=== PATIENT | female | born 1960 ===

== ENCOUNTER 2018-06-05 19:29 | Emergency (ER) | payer OTHER ==
[2018-06-05] MEDS ORDERED: Sodium Chloride 0.9% 1,000 ML IV STA ×2 (20:50→20:51)
--- NOTE | 2018-06-05 21:07 | ED PDOC ---
HPI: General Adult Time Seen by Provider: 06/05/18 20:41 Chief Complaint (Nursing): Weakness/Neurological Deficit Chief Complaint (Provider): weakness History Per: Patient, Family (Goddaughter) History/Exam Limitations: no limitations Onset/Duration Of Symptoms: Days (3 weeks) Current Symptoms Are (Timing): Still Present Additional Complaint(s): 57 y/o female history of hypertension, pre-diabetes here with Goddaughter for evaluation of generalized weakness x 3 weeks. Associated increase urine frequency, mostly during the night. Patient states in the last two days symptoms worsened, with associated dry mouth, prompting ED visit. Denies fever, headache, dizziness, nausea/vomiting, vision changes, chest pain, shortness of breath, palpitations, abdominal pain, changes in bowel movements, dysuria, hematuria. Past Medical History Reviewed: Historical Data, Nursing Documentation, Vital Signs Vital Signs: Last Vital Signs Temp 98 F 06/05/18 19:55 Pulse 74 06/05/18 19:55 Resp 16 06/05/18 19:55 BP 145/83 06/05/18 19:55 Pulse Ox 97 06/05/18 19:55 - Medical History PMH: Diabetes ("pre"; on Metformin (dose unknown)), HTN, Hyperlipidemia Denies: Chronic Kidney Disease - Surgical History Surgical History: No Surg Hx - Family History Family History: States: No Known Family Hx - Living Arrangements Living Arrangements: With Family - Social History Current smoker - smoking cessation education provided: No Alcohol: Social Drugs: Denies - Allergies Allergies/Adverse Reactions: Allergies Allergy/AdvReac Type Severity Reaction Status Date / Time No Known Allergies Allergy Verified 06/05/18 19:55 Review of Systems ROS Statement: Except As Marked, All Systems Reviewed And Found Negative Constitutional: Positive for: Weakness Genitourinary Female: Positive for: Frequency Physical Exam - Reviewed Nursing Documentation Reviewed: Yes Vital Signs Reviewed: Yes - Physical Exam Appears: Positive for: Well, Non-toxic, No Acute Distress Head Exam: Positive for: ATRAUMATIC, NORMAL INSPECTION, NORMOCEPHALIC Skin: Positive for: Normal Color Eye Exam: Positive for: Normal appearance ENT: Positive for: Normal ENT Inspection Cardiovascular/Chest: Positive for: Regular Rate, Rhythm Respiratory: Positive for: Normal Breath Sounds Gastrointestinal/Abdominal: Positive for: Normal Exam Back: Positive for: Normal Inspection Extremity: Positive for: Normal ROM Neurologic/Psych: Positive for: Alert, Oriented (x3) - Laboratory Results Result Diagrams: 06/05/18 22:01 06/05/18 22:01 - ECG ECG: Positive for: Viewed By Me (reviewed by ED attenidng) ECG Rhythm: Positive for: Sinus Rhythm O2 Sat by Pulse Oximetry: 97 - Progress ED Course And Treament: -accucheck >500 -cbc -cmp -ABG -ekg -IV NS bolus -IV insulin Patient states she is feeling better on re-eval. Patient educated on findings, discharged with instructions to follow up with PMD within 2-3 days for re-evaluation Continue current medications Diet/lifestyle modification Return precautions given Disposition - Clinical Impression Clinical Impression: Hyperglycemia due to type 2 diabetes mellitus - Patient ED Disposition Is Patient to be Admitted: No Counseled Patient/Family Regarding: Studies Performed, Diagnosis, Need For Followup - Disposition Disposition: Routine/Home Disposition Time: 02:43 Condition: IMPROVED Instructions: Hyperglycemia, Adult, Diabetes and Diet Forms: [employer] (Turkish) Print Language: MAORI
[2018-06-05 22:15] LABS: BASO # 0.1 K/uL (0.0-0.2); EOS # 0.1 K/uL (0.0-0.7); EOS % 0.9 % (0.0-4.0); HEMOGLOBIN 13.7 g/dL (12.0-16.0); LYMPH # 2.1 K/uL (1.0-4.3); LYMPH % 38.5 % (20.0-40.0); MEAN CELL VOLUME 88.7 fl (81.0-99.0); MEAN CORPUSCULAR HEMOGLOBIN 29.1 pg (27.0-31.0); MEAN CORPUSCULAR HGB CONC 32.8 g/dL (33.0-37.0); MEAN PLATELET VOLUME 10.7 fl (7.2-11.7); MONO # 0.5 K/uL (0.0-0.8); MONO % 8.4 % (0.0-10.0); NEUT # 2.8 K/uL (1.8-7.0); NEUT % 50.2 % (50.0-75.0); NRBC % 0.1 % (0.0-0.0); RBC 4.72 Mil/uL (3.80-5.20); RED CELL DISTRIBUTION WIDTH 14.2 % (11.5-14.5); WHITE BLOOD COUNT 5.5 K/uL (4.8-10.8)
[2018-06-05 22:23] LABS: ABG ALLEN TEST YES; ARTERIAL BLOOD GAS HCO3 25.5 mmol/L (21-28); ARTERIAL BLOOD GAS O2 SAT 97.2 % (95-98); ARTERIAL BLOOD GAS PCO2 43 mm/Hg (35-45); ARTERIAL BLOOD GAS PH 7.39 (7.35-7.45); ARTERIAL BLOOD GAS PO2 72 mm/Hg (80-100); ARTERIAL BLOOD GAS TCO2 27.3 mmol/L (22-28)
[2018-06-05 22:24] LABS: SQUAMOUS EPITHIAL 2 /hpf (0-5); URINE BACTERIA RARE (<OCC); URINE BILIRUBIN NEGATIVE (NEGATIVE); URINE CLARITY CLEAR (Clear); URINE COLOR STRAW (YELLOW); URINE GLUCOSE (UA) >=500 mg/dL (NEGATIVE); URINE LEUKOCYTE ESTERASE TRACE Leu/uL (Negative); URINE PROTEIN NEGATIVE (NEGATIVE); URINE UROBILINOGEN 0.2-1.0 mg/dL (0.2-1.0)
[2018-06-05 22:25] LABS: URINE BLOOD SMALL (NEGATIVE)
[2018-06-05 22:58] LABS: ALB/GLOB RATIO 1.4 (1.0-2.1); ALBUMIN 4.6 g/dL (3.5-5.0); ALT/SGPT 67 U/L (9-52); AST/SGOT 35 U/L (14-36); BLOOD UREA NITROGEN 19 mg/dl (7-17); CALCIUM 9.6 mg/dL (8.4-10.2); GFR NON-AFRICAN AMERICAN > 60
[2018-06-06] MEDS ORDERED: Insulin Regular 100 units/ml IV STA (00:30)
[2018-06-06] MEDS ORDERED: Insulin Regular 100 units/ml ONE (01:08)
[2018-06-06 02:25] VITALS: BP 128/90; PULSE 61; RESP 19; TEMP 97.7
[2018-06-06 02:43] VITALS: O2SAT 97
--- NOTE | 2018-06-06 12:24 | CARD ---
APPROVED REPORT Date of service: 06/05/2018 EKG Measurement Heart [id number] <Conclusion> Sinus bradycardia Low voltage QRS Borderline ECG
== END 2018-06-06 02:45 | disposition home or self-care (01) ==
LOC: H.ER 19:29
DX: E11.65 Type 2 diabetes mellitus with hyperglycemia (principal); E78.5 Hyperlipidemia, unspecified; I10 Essential (primary) hypertension
CPT/HCPCS: 36600; 80053; 81003; 82803; 82948; 85025; 87086; 93005; 96374; 99285; J7030